=== PATIENT | male | born 1975 | race Asian ===

== ENCOUNTER 2018-06-28 14:05 | Emergency (ER) | payer SELFPAY ==
[~2018-06-28 14:05] MED LIST: ISOVUE-370 76%-LOCM 1 ML ONE
[2018-06-28 14:32] LABS: #Basophils 0.1 thou/uL (0.0-0.2); #Eosinphils 0.1 thou/uL (0.0-0.7); #Lymphocytes 2.7 thou/uL (1.20-3.40); #Monocytes 1.2 thou/uL (0.11-0.59); #Neutrophils 9.3 thou/uL (1.40-6.50); %Basophils 0.9 % (0.0-1.0); %Eosinophils 0.7 % (0.0-10.0); %Lymphocytes 19.8 % (21.0-51.0); %Neutrophils 69.6 % (42.0-75.0); Hemoglobin 15.5 g/dL (14.0-18.0); Mean Corpuscular HGB CONC 31.2 g/dL (32.0-36.0); Mean Corpuscular Hemoglobin 29.8 pg (27.0-31.0); Mean Corpuscular Volume 95.5 fL (78.0-98.0); Mean Platelet Volume 7.4 fL (7.4-10.4); Platelet Count 229 thou/uL (130-400); RBC Distribution Width 12.6 % (11.5-14.5); White Blood Cell (WBC) Count 13.4 thou/uL (4.8-10.8)
[2018-06-28 14:51] LABS: Bilirubin Negative (Negative); Blood, Urine Negative (Negative); Clarity CLEAR (Clear); Glucose, Urine (Dipstick) Negative (Negative); Leukocyte Small (Negative); Nitrite Negative (Negative); Protein, Urine (Dipstick) Negative (Neg-Trace); Specific Gravity, Urine 1.018 (1.002-1.036)
[2018-06-28 14:53] LABS: Bacteria/HPF None Seen HPF (None Seen); Hyaline Casts/LPF 0-3 HYALINE CAST LPF (0-3 Hyaline); Pathc Cast-AUWi Flag 0.14 (0-2.49); RBC/HPF 0-3 HPF (0-3); Squamous Epithelial 0-3 HPF (0-3)
--- NOTE | 2018-06-28 15:40 | ULT ---
TESTICULAR ULTRASOUND: Date: 06/28/18 HISTORY: Right scrotal pain and swelling since Thursday. TECHNIQUE: Multiplanar Horvath scale and color Doppler images were obtained in a testicular/scrotal ultrasound. Spe ctral analysis of the Doppler waveforms of the chest were performed. FINDINGS: The testicles are normal in echogenicity without focal lesions. There is increased flow to the right inguinal region and testicle. There is scrotal wall thickening on the right. There is a small right e pididymal cyst measuring 1.2 cm in greatest dimension. The epididymis is echogenic and also demonstra rik increased flow. The left testicle is normal in echogenic without focal lesions and demonstrates normal flow. No left epididymal cyst is seen. IMPRESSION: 1. Right epididymal orchitis. 2. Right epididymal cyst. POS: [facility]
[2018-06-28 16:12] LABS: ALT (SGPT) 26 U/L (8-55); AST (SGOT) 21 U/L (5-34); Albumin 4.1 g/dL (3.5-5.0); Alkaline Phosphatase 66 U/L (40-150); Anion Gap 13 mmol/L (10-20); BUN (Urea Nitrogen) 14 mg/dL (8.9-20.6); Bilirubin, Total 1.1 mg/dL (0.2-1.2); Calc. Creatinine Clearance 0 mL/min (70-130); Calcium 9.4 mg/dL (7.8-10.44); Carbon Dioxide 24 mmol/L (22-29); Chloride 106 mmol/L (98-107); Estimated GFR-MDRD Greater than 90; Globulin 3.3 g/dL (2.4-3.5); Glucose 136 mg/dL (70-105); Potassium 3.9 mmol/L (3.5-5.1); Protein, Total 7.4 g/dL (6.0-8.3); Sodium 139 mmol/L (136-145)
[2018-06-28] MEDS ORDERED: Ketorolac Tromethamine 30 MG/ML VIAL ONE (16:16)
--- NOTE | 2018-06-28 18:02 | CT ---
ABDOMEN CT WITH CONTRAST PELVIS CT WITH CONTRAST: Date: 06/28/18 HISTORY: Right groin/testicular swelling. COMPARISON: None. TECHNIQUE: Abdomen and pelvic CT are performed with IV contrast. Enteric contrast is not administered. Coronal r eformatted images are submitted for interpretation. FINDINGS: ABDOMEN CT: Dependent atelectatic change. Heart size is normal. No significant pericardial fluid. The descending thoracic aorta and abdominal aorta have a normal caliber. No periaortic fat stranding. Portal vein is patent. Unremarkable gallbladder. There is an enhancing focus in the posterior segment of the right hepatic lobe. The enhancing focus h as a nodular enhancement and a hemangioma, measuring 2.6 x 2.6 cm is noted. There is a second smaller enhancing focus likely representing a flash-filled hemangioma measuring 5.0 mm. There is a nonspecific hyperdensity in the hepatic dome and tip of the liver which may be due to prev ious clips or coil mass. The spleen, pancreas, and adrenal glands are unremarkable. No gastrohepatic, retrocrural, or periportal lymphadenopathy. No mesenteric mass, lymphadenopathy, free air, or free fluid. Symmetric enhancement of the kidneys. Bilaterally, no obstructive uropathy. Limited evaluation of the alimentary canal due to lack of oral contrast. Gastric mucosa, duodenum, an d small bowel loops are unremarkable. Fecalization of the distal ileum likely due to incompetent ileo cecal valve. Normal caliber appendix. Scattered fecal material in a nondistended, nondilated colon. T here is diverticulosis, without evidence of diverticulitis. CT PELVIS: No mass, lymphadenopathy, free air, or free fluid. Unremarkable urinary bladder. There is increased v ascular flow in the right hemiscrotum. No lytic or blastic lesions in the osseous structures. IMPRESSION: 1. Normal caliber appendix. 2. No acute abnormality in the abdomen or pelvis. 3. Increased vascular flow to the right testicle, which can be seen in a patient who has been report ed to have epididymo-orchitis based upon ultrasound. POS: [facility]
[2018-06-30 00:39] LABS: Chlamydia by PCR Not Detected (NotDetected); GC by PCR Not Detected (NotDetected)
== END 2018-06-28 17:25 | disposition home or self-care (01) ==
LOC: ERS 14:05
DX: N45.3 Epididymo-orchitis (principal); F17.210 Nicotine dependence, cigarettes, uncomplicated
CPT/HCPCS: 36415; 74177; 76870; 80053; 81003; 81015; 85025; 87086; 87491; 87591; 93976; 96374; J1885